=== PATIENT | male | born 1980 | race African-American/Black ===

== ENCOUNTER 2017-06-03 21:27 | Emergency (ER) | payer SELFPAY ==
[2017-06-03 22:21] VITALS: BP 133/71
[2017-06-03] MEDS ORDERED: KETOROLAC TROMETHAMINE INJ/PF 30 MG/1 ML SDV IM ONE (23:18)
[2017-06-03] MEDS ORDERED: METAXALONE 800 MG TABLET PO ONE (23:18)
--- NOTE | 2017-06-03 23:23 | ER Document Report ---
ED General - General Chief Complaint: Low Back Pain Stated Complaint: LOWER BACK PAIN Time Seen by Provider: 06/03/17 23:05 Notes: Patient is a 36-year-old male who presents with complaint of a low back pain. He says he has had low back pain in the past but not like this. Patient says she was helping move heavy stuff on and felt a pain into his lower back around his lumbosacral junction. He has pain that radiates on the back of his right leg. This is a first-time is ever had pain radiate down the back of his right leg. No numbness or weakness into the foot. No other injuries. No recent fevers or infections. No loss of bowel control. No urinary retention. No other complaints at this time. TRAVEL OUTSIDE OF THE [place] IN LAST 30 DAYS: No - Related Data Allergies/Adverse Reactions: No Known Allergies Allergy (Verified 10/06/14 09:38) Past Medical History - Social History Smoking Status: Unknown if Ever Smoked Frequency of alcohol use: None Drug Abuse: None Family History: Reviewed & Not Pertinent, Hypertension Pulmonary Medical History: Reports: Hx Asthma - exercise induced Renal/ Medical History: Denies: Hx Peritoneal Dialysis Psychiatric Medical History: Denies: Hx Depression - Immunizations Immunizations up to date: Yes Hx Diphtheria, Pertussis, Tetanus Vaccination: Yes Review of Systems - Review of Systems Notes: My Normal Review Basic REVIEW OF SYSTEMS: CONSTITUTIONAL : Denies fever, chills, or sweats. Denies recent illness. RESPIRATORY: Denies cough, cold, or chest congestion. Denies shortness of breath, difficulty breathing, or wheezing. MUSCULOSKELETAL: Back pain SKIN: Denies rash or skin lesions. NEUROLOGICAL: Denies weakness or paralysis or loss of use of either side. Denies problems with gait or speech. Denies sensory or motor loss. ALL OTHER SYSTEMS REVIEWED AND NEGATIVE. Physical Exam - Vital signs Vitals: Temp Pulse Resp BP Pulse Ox 98.3 F 67 20 133/71 H 99 06/03/17 22:20 06/03/17 22:20 06/03/17 22:20 06/03/17 22:20 06/03/17 22:20 - Notes Notes: General Appearance: Well nourished, alert, cooperative, no acute distress, moderate obvious discomfort. Vitals: reviewed, See vital signs table. Eyes: PERRL, EOMI, Conjuctiva clear Back: Pinpoint pain to palpation of the lumbosacral junction. No paraspinal tenderness palpation. No pain to palpation over the piriformis. Extremities: strength 5/5 in all extremities, good pulses in all extremities, no swelling or tenderness in the extremities, no edema. Patient is able to stand and walk without too much difficulty. He has no foot drop. He has good strength with plantar dorsiflexion against resistance. Good distal sensation. Normal patellar reflex. Skin: warm, dry, appropriate color, no rash Neuro: speech clear, oriented x 3, normal affect, responds appropriately to questions. Course - Re-evaluation Re-evalutation: 06/04/17 06:37 Patient will be discharged home with a prescription for Skelaxin. He was given a dose of Toradol here. He will take Motrin at home. I encouraged him to follow-up with for reevaluation if his pain is not improving after 5-7 days. He is encouraged to not lift anything heavy but does still get up and walking around. Patient encouraged to return to ER immediately if he has any loss of bowel control, any urinary retension, leg weakness or numbness, or if he feels that his symptoms are worsening. Patient agrees with plan and will be discharged home. Dictation of this chart was performed using voice recognition software; therefore, there may be some unintended grammatical errors. - Vital Signs Vital signs: Temp Pulse Resp BP Pulse Ox 98.3 F 67 20 133/71 H 99 06/03/17 22:20 06/03/17 22:20 06/03/17 22:20 06/03/17 22:20 06/03/17 22:20 Discharge - Discharge Clinical Impression: Back pain Qualifiers: Back pain location: low back pain Chronicity: acute Back pain laterality: midline Sciatica presence: with sciatica Sciatica laterality: sciatica of right side Qualified Code(s): M54.41 - Lumbago with sciatica, right side Condition: Good Disposition: HOME, SELF-CARE Additional Instructions: LOW BACK PAIN: Three out of every four people will have an episode of disabling back pain during their lifetime. Most commonly the pain is due to straining of the muscles and ligaments in the low back. Usual treatment includes: (1) Rest on a firm surface. Avoid lying on your stomach. (2) Ice pack the painful area. After a few days, gentle heat may be used intermittently to relax the area, or ice packs can be continued. (3) Medication may be needed -- muscle relaxers and antiinflammatory medicines are commonly used. (4) As the back improves, exercises are prescribed to strengthen the back and abdominal muscles. Your doctor will advise you on the proper care for your back at each stage in your recovery. You may be better in a few days -- or healing may take several weeks. If new symptoms of a "herniated disc" (radiation of pain, numbness, or tingling down the back of the leg or weakness in the leg) occur, you should be re-examined. Further testing may be necessary. PAIN MEDICATION INJECTION: You have received an injection of a pain medication. You should experience significant pain relief within 45 minutes. If this injection was a narcotic -- it will impair your judgement, slow your reaction time and make you sleepy (as well as relieve your pain). Narcotics also can cause nausea. You should not drive, work with machinery, or perform any task requiring mental alertness until all effects of the medication are gone -- six to eight hours. Do not take any alcohol, or sedatives, and do not take any other medication without checking with your physician. MUSCLE RELAXERS: Muscle relaxing medications are usually prescribed for acute muscle spasm or injury to the neck and back. They are often combined with antiinflammatory pain medication for increased relief. You may stop the muscle relaxer when the pain and stiffness have improved. Start the medication again if spasms recur. Muscle relaxers may cause drowsiness, especially with the first dose. Do not operate machinery or drive while under the effects of the medication. Most muscle relaxers last up to 24 hours. Do not combine the medication with alcohol. ICE PACKS: Apply ice packs frequently against the painful area. Many different schedules are recommended, such as "20 minutes on, 20 minutes off" or "one hour ice, two hours rest." If you need to work, you may need to go longer between ice treatments. You should plan to have the area ice packed AT LEAST one fourth of the time. The ice should be applied over the wrap, tape, or splint, or over a layer of cloth -- not directly against the skin. Some ice bags have a built-in cloth and can be put directly on the skin. WARM PACKS: After approximately two days, apply gentle heat (such as a heating pad or hot water bottle) for about 20 to 30 minutes about every two hours -- at least four times daily. Warmth and elevation will help you make a more rapid recovery , and will ease the pain considerably. Do not use HOT heat, and never apply heat for longer than 30 minutes. The continuous heat can invisibly damage skin and muscles -- even when no burn is seen on the surface. Damaged muscles can make you MORE sore. FOLLOW-UP CARE: If you have been referred to a physician for follow-up care, call the physician s office for an appointment as you were instructed or within the next two days. If you experience worsening or a significant change in your symptoms, notify the physician immediately or return to the Emergency Department at any time for re-evaluation. Please return to the ER immediately if you develop worsening pain, leg weakness or numbness, worsening of your pain, loss of bowel control, inability to urinate , or if you feel unwell. Please follow up with your doctor in 5 days for reevaluation. If you continue to have pain you may need to have a MRI performed. Prescriptions: Ibuprofen [Motrin 800 mg Tablet] 800 mg PO Q8H PRN #30 tab PRN Reason: Metaxalone [Skelaxin 800 mg Tablet] 800 mg PO ASDIR PRN #20 tablet PRN Reason: Forms: Return to Work
[2017-06-04] MEDS ORDERED: KETOROLAC TROMETHAMINE INJ/PF 30 MG/1 ML SDV ONE (00:30)
== END 2017-06-04 00:40 | disposition home or self-care (01) ==
LOC: ER 21:27
DX: M54.41 Lumbago with sciatica, right side (principal); X50.0XXA Overexertion from strenuous movement or load, initial encounter; Y93.89 Activity, other specified; J45.909 Unspecified asthma, uncomplicated
CPT/HCPCS: 99283; 96372; J1885; J3490

== ENCOUNTER 2018-03-02 18:58 | Emergency (ER) | payer SELFPAY ==
--- NOTE | 2018-03-02 20:05 | ER Document Report ---
ED General - General Chief Complaint: Difficulty Swallowing Stated Complaint: TROUBLE SWALLOWING, DRY MOUTH Time Seen by Provider: 03/02/18 20:04 TRAVEL OUTSIDE OF THE [place] IN LAST 30 DAYS: No - HPI Notes: Patient is an otherwise healthy 37-year-old black male presents to the emergency department with report that he has noticed a dry mouth intermittently for the last 2 weeks. The patient states he has been working outside in the heat and has not been drinking enough fluids. The patient currently states he feels better after drinking more fluids today. The patient also has a history of anxiety and his questions whether not the anxiety may be causing the dry mouth sensation. The patient denies any chest pain, difficulty breathing, fever, chills, nausea, vomiting, abdominal pain. The patient reports no dry eyes. He denies any weight loss or night sweats or headache. - Related Data Allergies/Adverse Reactions: No Known Allergies Allergy (Verified 03/02/18 18:59) Past Medical History - General Information source: Patient - Social History Smoking Status: Former Smoker Chew tobacco use (# tins/day): No Frequency of alcohol use: Rare Drug Abuse: None Lives with: Family Family History: Reviewed & Not Pertinent, Hypertension Patient has suicidal ideation: No Patient has homicidal ideation: No Pulmonary Medical History: Reports: Hx Asthma - exercise induced Renal/ Medical History: Denies: Hx Peritoneal Dialysis Psychiatric Medical History: Denies: Hx Depression - Immunizations Immunizations up to date: Yes Hx Diphtheria, Pertussis, Tetanus Vaccination: Yes Review of Systems - Review of Systems Notes: REVIEW OF SYSTEMS: CONSTITUTIONAL : Denies fever, chills, or sweats. Denies recent illness. EENT: Denies eye, ear, throat, or mouth pain. Denies nasal or sinus congestion or discharge. Denies throat, tongue, or mouth swelling. The patient reports occasional sensation of dryness when he is trying to swallow with globus sensation, but other times he feels fine. No voice change. CARDIOVASCULAR: Denies chest pain. Denies palpitations or racing or irregular heart beat. Denies ankle edema. RESPIRATORY: Denies cough, cold, or chest congestion. Denies shortness of breath, difficulty breathing, or wheezing. GASTROINTESTINAL: Denies abdominal pain or distention. Denies nausea, vomiting , or diarrhea. Denies blood in vomitus, stools, or per rectum. Denies black, tarry stools. Denies constipation. GENITOURINARY: Denies difficulty urinating, painful urination, burning, frequency, blood in urine, or discharge. MUSCULOSKELETAL: Denies back or neck pain or stiffness. Denies joint pain or swelling. SKIN: Denies rash, lesions or sores. HEMATOLOGIC : Denies easy bruising or bleeding. LYMPHATIC: Denies swollen, enlarged glands. NEUROLOGICAL: Denies confusion or altered mental status. Denies passing out or loss of consciousness. Denies dizziness or lightheadedness. Denies headache. Denies weakness or paralysis or loss of use of either side. Denies problems with gait or speech. Denies sensory loss, numbness, or tingling. Denies seizures. PSYCHIATRIC: Denies anxiety or stress. Denies depression, suicidal ideation, or homicidal ideation. ALL OTHER SYSTEMS REVIEWED AND NEGATIVE. Dictation was performed using [employer] voice recognition software Physical Exam - Vital signs Vitals: Temp Pulse Resp BP Pulse Ox 98.5 F 69 17 134/78 H 99 03/02/18 19:03 03/02/18 19:03 03/02/18 19:03 03/02/18 19:03 03/02/18 19:03 - Notes Notes: PHYSICAL EXAMINATION: GENERAL: Well-appearing, well-nourished and in no acute distress. HEAD: Atraumatic, normocephalic. EYES: Pupils equal round and reactive to light, extraocular movements intact, sclera anicteric, conjunctiva are normal. ENT: Nares patent, oropharynx clear without exudates. Moist mucous membranes. NECK: Normal range of motion, supple without lymphadenopathy LUNGS: Breath sounds clear to auscultation bilaterally and equal. No wheezes rales or rhonchi. HEART: Regular rate and rhythm without murmurs ABDOMEN: Soft, nontender, nondistended abdomen. No guarding, no rebound. No masses appreciated. Musculoskeletal: Normal range of motion, no pitting or edema. No cyanosis. NEUROLOGICAL: Cranial nerves grossly intact. Normal speech, normal gait. Normal sensory, motor exams PSYCH: Normal mood, normal affect. SKIN: Warm, Dry, normal turgor, no rashes or lesions noted. Course - Re-evaluation Re-evalutation: 03/02/18 21:53 No evidence for diabetes or severe dehydration noted. No evidence for UTI or liver abnormalities or systemic infection. One questions anxiety is a possibility. There is no clinical suggestion for Sjogren's syndrome or Behcet' s or other autoimmune condition given the brief duration and episodic report. - Vital Signs Vital signs: Temp Pulse Resp BP Pulse Ox 98.5 F 69 17 134/78 H 99 03/02/18 19:03 03/02/18 19:03 03/02/18 19:03 03/02/18 19:03 03/02/18 19:03 Discharge - Discharge Clinical Impression: Dehydration Condition: Stable Disposition: HOME, SELF-CARE Instructions: Dehydration ([facility]), Family Physicians / Practices Additional Instructions: Drink plenty of fluids.
[2018-03-02 21:02] LABS: APPEARANCE,URINE CLEAR; BILIRUBIN,URINE NEGATIVE (NEGATIVE); COLOR,URINE YELLOW; GLUCOSE, URINE NEGATIVE (NEGATIVE); KETONES,URINE NEGATIVE (NEGATIVE); LEUKOCYTE ESTERASE,URINE NEGATIVE (NEGATIVE); NITRITE,URINE NEGATIVE (NEGATIVE); PROTEIN,URINE NEGATIVE (NEGATIVE); URINE SPECIFIC GRAVITY 1.015; UROBILINOGEN,URINE NEGATIVE mg/dL (<2.0)
[2018-03-02 22:11] VITALS: BP 138/92
== END 2018-03-02 22:11 | disposition home or self-care (01) ==
LOC: ER 18:58
DX: E86.0 Dehydration (principal); J45.909 Unspecified asthma, uncomplicated; Z87.891 Personal history of nicotine dependence
CPT/HCPCS: 81001; 82962; 99284

== ENCOUNTER 2018-10-09 15:49 | Emergency (ER) | payer SELFPAY ==
[2018-10-09] MEDS ORDERED: IBUPROFEN 800 MG TABLET PO ONE (16:59)
--- NOTE | 2018-10-09 17:01 | ER Document Report ---
ED Neck/Back Problem - General Chief Complaint: Low Back Pain Stated Complaint: LOWER BACK PAIN Time Seen by Provider: 10/09/18 16:32 Mode of Arrival: Ambulatory Information source: Patient Notes: 38-year-old male presented to ED for complaint of low back pain since Sunday. He states he was doing a lot of bending over given his 3-month-old baby of shower then bending over to try him when he developed pain in the lower back. He states his pain has continued. He states his gave him some ibuprofen which helped his pain but that it came right back soon after. He states his told him that he needed to do back exercises and walk but he laid around because of the pain. Patient is alert and oriented respirations regular and unlabored speaking in full sentences. TRAVEL OUTSIDE OF THE [place] IN LAST 30 DAYS: No - HPI Patient complains to provider of: Pain, Lower back Onset: Other - Former Where: Other - In a bed and breakfast he was stating that for the holidays Onset: Gradual Timing: Still present Quality of pain: Achy, Cramping Severity: Moderate Pain Level: 3 Context: Bending, Lifting, Turning Recent injury: Possibly Associated symptoms: Lower back pain - Related Data Allergies/Adverse Reactions: No Known Allergies Allergy (Verified 10/09/18 15:51) Past Medical History - General Information source: Patient - Social History Smoking Status: Former Smoker Cigarette use (# per day): No Chew tobacco use (# tins/day): No Smoking Education Provided: No Frequency of alcohol use: None Drug Abuse: None Occupation: patrol driver Lives with: Family Family History: Reviewed & Not Pertinent, Hypertension Patient has suicidal ideation: No Patient has homicidal ideation: No - Past Medical History Cardiac Medical History: Reports: None Pulmonary Medical History: Reports: Hx Asthma - exercise induced EENT Medical History: Reports: None Neurological Medical History: Reports: None Endocrine Medical History: Reports: None Renal/ Medical History: Reports: None Malignancy Medical History: Reports None GI Medical History: Reports: None Musculoskeletal Medical History: Reports Hx Musculoskeletal Trauma Skin Medical History: Reports None Psychiatric Medical History: Reports: None Traumatic Medical History: Reports: None Infectious Medical History: Reports: None Surgical Hx: Negative Past Surgical History: Reports: None - Immunizations Immunizations up to date: Yes Hx Diphtheria, Pertussis, Tetanus Vaccination: Yes Review of Systems - Review of Systems Constitutional: No symptoms reported EENT: No symptoms reported Cardiovascular: No symptoms reported Respiratory: No symptoms reported Gastrointestinal: No symptoms reported Genitourinary: No symptoms reported Male Genitourinary: No symptoms reported Musculoskeletal: Back pain, Muscle pain, Muscle stiffness, Other - Patient denies any cauda equina, he denies any loss of control of bowel or bladder, saddle anesthesia, loss of control of lower extremities or loss of sensation to the lower extremities. Skin: No symptoms reported Hematologic/Lymphatic: No symptoms reported Neurological/Psychological: No symptoms reported -: Yes All other systems reviewed and negative Physical Exam - Vital signs Vitals: Temp Pulse Resp BP Pulse Ox 99.0 F 73 15 133/90 H 97 10/09/18 16:04 10/09/18 16:04 10/09/18 16:04 10/09/18 16:04 10/09/18 16:04 Interpretation: Normal - General General appearance: Appears well, Alert - HEENT Head: Normocephalic, Atraumatic Eyes: Normal Pupils: PERRL - Respiratory Respiratory status: No respiratory distress Chest status: Nontender Breath sounds: Normal Chest palpation: Normal - Cardiovascular Rhythm: Regular Heart sounds: Normal auscultation Murmur: No - Abdominal Inspection: Normal Distension: No distension Bowel sounds: Normal Tenderness: Nontender Organomegaly: No organomegaly - Back Back: Normal, Tender. No: Deformity/step-off, CVA tenderness, Vertebra tenderness, Scars, Scoliosis, Wounds Notes: No signs or symptoms of cauda equina - Extremities General upper extremity: Normal inspection, Nontender, Normal color, Normal ROM, Normal temperature General lower extremity: Normal inspection, Nontender, Normal color, Normal ROM, Normal temperature, Normal weight bearing. No: Jeanette's sign - Neurological Neuro grossly intact: Yes Cognition: Normal Orientation: AAOx4 Matthew Coma Scale Eye Opening: Spontaneous Matthew Coma Scale Verbal: Oriented [place] Coma Scale Motor: Obeys Commands Matthew Coma Scale Total: 15 Speech: Normal Motor strength normal: LUE, RUE, LLE, RLE Sensory: Normal - Psychological Associated symptoms: Normal affect, Normal mood - Skin Skin Temperature: Warm Skin Moisture: Dry Skin Color: Normal Course - Re-evaluation Re-evalutation: 10/09/18 21:56 Ibuprofen and Flexeril were given to the patient and patient had x-rays of the lumbar spine. No acute changes on the x-rays. Patient was discharged home with prescription for Flexeril and instructed on back exercises ice packs warm packs and need to move not to lay still. Patient also given instructions on ibuprofen. Patient to follow-up with his primary doctor for any increase or continued pain. Patient verbalized understanding and agreement with treatment plan. - Vital Signs Vital signs: Temp Pulse Resp BP Pulse Ox 98.4 F 63 18 135/83 H 99 10/09/18 18:43 10/09/18 18:43 10/09/18 18:43 10/09/18 18:43 10/09/18 18:43 - Diagnostic Test Radiology reviewed: Image reviewed, Reports reviewed Discharge - Discharge Clinical Impression: Low back strain Qualifiers: Encounter type: initial encounter Qualified Code(s): S39.012A - Strain of muscle, fascia and tendon of lower back, initial encounter Condition: Stable Disposition: HOME, SELF-CARE Instructions: Family Physicians / Practices Additional Instructions: LOW BACK PAIN: Three out of every four people will have an episode of disabling back pain during their lifetime. Most commonly the pain is due to straining of the muscles and ligaments in the low back. Usual treatment includes: (1) Rest on a firm surface. Avoid lying on your stomach. (2) Ice pack the painful area. After a few days, gentle heat may be used intermittently to relax the area, or ice packs can be continued. (3) Medication may be needed -- muscle relaxers and antiinflammatory medicines are commonly used. (4) As the back improves, exercises are prescribed to strengthen the back and abdominal muscles. Your doctor will advise you on the proper care for your back at each stage in your recovery. You may be better in a few days -- or healing may take several weeks. If new symptoms of a "herniated disc" (radiation of pain, numbness, or tingling down the back of the leg or weakness in the leg) occur, you should be re-examined. Further testing may be necessary. MUSCLE RELAXERS: Muscle relaxing medications are usually prescribed for acute muscle spasm or injury to the neck and back. They are often combined with antiinflammatory pain medication for increased relief. You may stop the muscle relaxer when the pain and stiffness have improved. Start the medication again if spasms recur. Muscle relaxers may cause drowsiness, especially with the first dose. Do not operate machinery or drive while under the effects of the medication. Most muscle relaxers last up to 24 hours. Do not combine the medication with alcohol. ICE PACKS: Apply ice packs frequently against the painful area. Many different schedules are recommended, such as "20 minutes on, 20 minutes off" or "one hour ice, two hours rest." If you need to work, you may need to go longer between ice treatments. You should plan to have the area ice packed AT LEAST one fourth of the time. The ice should be applied over the wrap, tape, or splint, or over a layer of cloth -- not directly against the skin. Some ice bags have a built-in cloth and can be put directly on the skin. WARM PACKS: After approximately two days, apply gentle heat (such as a heating pad or hot water bottle) for about 20 to 30 minutes about every two hours -- at least four times daily. Warmth and elevation will help you make a more rapid recovery, and will ease the pain considerably. Do not use HOT heat, and never apply heat for longer than 30 minutes. The continuous heat can invisibly damage skin and muscles -- even when no burn is seen on the surface. Damaged muscles can make you MORE sore. Ibuprofen Ibuprofen is an excellent, safe drug for pain control. In addition, it has potent antiinflammatory effects which are beneficial, especially in the treatment of injuries, arthritis, or tendonitis. It's best to take ibuprofen with food. Persons with ulcer disease or allergy to aspirin should notify their physician of this before taking ibuprofen. Take the medication exactly as prescribed. Don't take additional doses unless instructed to do so by your doctor. If you develop wheezing, shortness of breath, hives, faintness, stomach pain, vomiting, or dark black stools, return for re-evaluation at once. Stretching Exercises for the Back The physician has recommended that you begin stretching exercises for your back. These are often used even while the back is painful. However, you should notify the physician if the activities seem to increase your pain. PELVIC TILT: Lie flat on your back with knees bent. Tighten your stomach and buttock muscles so it flattens your lower back against the floor. Hold 10 seconds. Repeat 10 times, twice daily. KNEE RAISE: Lying on the back with knees bent, raise one knee to your chest, then the other. Hold both knees against the chest 10 seconds, then lower one knee at a time. Repeat 10 times, twice daily. PARTIAL TRUNK RAISE: Lie face down, arms at your sides. Keeping your waist on the floor, use your arms raise your chest up. Support yourself on your elbows for 30 seconds. Repeat twice daily, increasing the time to two minutes as you recover. FOLLOW-UP CARE: If you have been referred to a physician for follow-up care, call the physicians office for an appointment as you were instructed or within the next two days. If you experience worsening or a significant change in your symptoms, notify the physician immediately or return to the Emergency Department at any time for re-evaluation. Prescriptions: Cyclobenzaprine HCl [Flexeril 10 mg Tablet] 10 mg PO TIDP PRN #15 tab PRN Reason: Forms: Elevated Blood Pressure, Return to Work
[2018-10-09] MEDS ORDERED: CYCLOBENZAPRINE HCL 10 MG TABLET PO ONE (17:02)
--- NOTE | 2018-10-09 18:23 | RADIOLOGY REPORT (SQ) ---
EXAM DESCRIPTION: L SPINE WHOLE COMPLETED DATE/TIME: 10/09/2018 5:28 pm REASON FOR STUDY: pain and injury COMPARISON: 08/15/2017 NUMBER OF VIEWS: Five views including obliques. TECHNIQUE: AP, lateral, oblique, and sacral radiographic images acquired of the lumbar spine. LIMITATIONS: None. FINDINGS: MINERALIZATION: Normal. SEGMENTATION: 6 non rib-bearing lumbar type vertebral bodies. ALIGNMENT: Normal. VERTEBRAE: Maintained height. No fracture or worrisome bone lesion. DISCS: Preserved height. No significant osteophytes or end plate irregularity. POSTERIOR ELEMENTS: Pedicles and facets are intact. No pars defect or posterior arch defects. HARDWARE: None in the spine. PARASPINAL SOFT TISSUES: Normal. PELVIS: Intact as visualized. No fractures or worrisome bone lesions. SI joints intact. OTHER: No other significant finding. IMPRESSION: No acute fracture of the lumbar spine. TECHNICAL DOCUMENTATION: JOB ID: [id number] [employer]- All Rights Reserved Reading location - IP/workstation name: [email or web address]
[2018-10-09 18:53] VITALS: BP 135/83
== END 2018-10-09 19:11 | disposition home or self-care (01) ==
LOC: ER 15:49
DX: S39.012A Strain of muscle, fascia and tendon of lower back, initial encounter (principal); X50.1XXA Overexertion from prolonged static or awkward postures, initial encounter; Z87.891 Personal history of nicotine dependence; J45.909 Unspecified asthma, uncomplicated
CPT/HCPCS: 72110; 99283

== ENCOUNTER 2019-05-29 20:30 | Emergency (ER) | payer SELFPAY ==
--- NOTE | 2019-05-30 00:19 | ER Document Report ---
ED General - General Chief Complaint: Mouth Problem Stated Complaint: DRY MOUTH Time Seen by Provider: 05/29/19 23:45 Notes: 38-year-old male presents the emergency department with chief complaint of dry mouth. He said is been intermittent for the past 3 weeks. He has been seen for this before but it was transient in nature. Patient states he works outside and he drinks less than 1 L of water a day so he thinks he might be dehydrated. Th ere is no evidence of aphthous ulcers or any cutaneous lesions in his mouth. Patient denies a history of those. Patient states periodically its bothersome because he has difficulty swallowing like he has "cotton mouth". He went to the urgent care and the provider said that they thought that he had inflammation of his "taste buds" and placed him on steroids for which he took 2 doses but could not tolerate it and stopped. Patient denies any recent illness, denies any acute shortness of breath, denies any dysphagia, denies any chest pain, denies rapid heart rate, denies any urinary symptoms. No other complaints TRAVEL OUTSIDE OF THE [place] IN LAST 30 DAYS: No - Related Data Allergies/Adverse Reactions: No Known Allergies Allergy (Verified 10/09/18 15:51) Past Medical History - Social History Smoking Status: Never Smoker Chew tobacco use (# tins/day): No Frequency of alcohol use: None Drug Abuse: None Family History: Reviewed & Not Pertinent, Hypertension Patient has suicidal ideation: No Patient has homicidal ideation: No Pulmonary Medical History: Reports: Hx Asthma - exercise induced Renal/ Medical History: Denies: Hx Peritoneal Dialysis Musculoskeletal Medical History: Reports Hx Musculoskeletal Trauma Psychiatric Medical History: Denies: Hx Depression - Immunizations Immunizations up to date: Yes Hx Diphtheria, Pertussis, Tetanus Vaccination: Yes Review of Systems - Review of Systems Constitutional: See HPI EENT: See HPI Cardiovascular: See HPI Respiratory: See HPI Gastrointestinal: See HPI Genitourinary: See HPI Male Genitourinary: No symptoms reported Musculoskeletal: No symptoms reported Skin: See HPI Hematologic/Lymphatic: No symptoms reported Neurological/Psychological: No symptoms reported Physical Exam - Vital signs Vitals: Temp Pulse Resp BP Pulse Ox 98.5 F 77 18 143/95 H 96 05/29/19 20:33 05/29/19 20:33 05/29/19 20:33 05/29/19 20:33 05/29/19 20:33 - Notes Notes: PHYSICAL EXAMINATION: Reviewed vital signs and charting by RN GENERAL: Alert, interacts well. No acute distress. HEAD: Normocephalic, atraumatic. EYES: Pupils equal and round. Extraocular movements intact. ENT: Oral mucosa moist, tongue midline. Papillated in the posterior aspect of his tongue are slightly inflamed but there is no erythema or any lesions no aphthous ulcers or any cutaneous lesions seen in the mouth. NECK: Full range of motion. Trachea midline. LUNGS: Clear to auscultation bilaterally, no wheezes, rales, or rhonchi. No respiratory distress. HEART: Regular rate and rhythm. No murmur ABDOMEN: soft, non-tender. No distention. Bowel sounds present EXTREMITIES: Moves all 4 extremities spontaneously. No edema, No cyanosis. PSYCH: Normal affect, normal mood. SKIN: Warm, dry, normal turgor. No rashes or lesions noted. Course - Re-evaluation Re-evalutation: 05/30/19 00:18 Patient is well-appearing and in no acute distress. This is been an intermittent ongoing thing and patient was seen here previously for the same problem. Patient said he checked his blood sugar at home and it was around 90 so I have low suspicion that etiology is diabetes. No concerns for autoimmune disorder like Sjogren's syndrome or Bechet disease. I suspect patient might be dehydrated as he does not drink hardly any water works outside every day. Plan is to give him IV fluids and check a quick urinalysis. 05/30/19 01:12 Urine was not concentrated and there is no ketones in the urine to indicate dehydration. I discussed at length possibilities with patient but again I do not suspect any autoimmune issue, patient is not taking any anticholinergics, there is no clear cause for why is having a dry mouth other than low fluid intake and working outside. He is receiving IV fluids and tolerating them. He does have a dentist appointment on Sunday and he is going to raise the issue with the dentist. At this time he is stable for discharge. - Vital Signs Vital signs: Temp Pulse Resp BP Pulse Ox 98.5 F 77 18 143/95 H 96 05/29/19 20:33 05/29/19 20:33 05/29/19 20:33 05/29/19 20:33 05/29/19 20:33 Discharge - Discharge Clinical Impression: Dry mouth Condition: Good Disposition: HOME, SELF-CARE Additional Instructions: You were seen in the emergency department this evening for dry mouth. Your urinalysis was fairly unremarkable and we gave you 2 L of IV fluids to help rehydrate you. I suspect that it is probably related to low water intake since he works outside. I do not think you have any autoimmune issue at this time. Please follow-up with your primary doctor in the near future to follow-up if the problem persists. If you develop the inability to swallow, have severe pain with swallowing, your throat starts closing up, you have intractable nausea or vomiting, or you have any other concerning symptoms please return to the emergency department. Forms: Return to Work
[2019-05-30] MEDS: NORMAL SALINE 1000 ML 1,000 ML IV PRN ×2 (00:33→00:34)
[2019-05-30 00:40] LABS: APPEARANCE,URINE CLEAR; BILIRUBIN,URINE NEGATIVE (NEGATIVE); COLOR,URINE STRAW; GLUCOSE, URINE NEGATIVE (NEGATIVE); KETONES,URINE NEGATIVE (NEGATIVE); LEUKOCYTE ESTERASE,URINE NEGATIVE (NEGATIVE); NITRITE,URINE NEGATIVE (NEGATIVE); PROTEIN,URINE NEGATIVE (NEGATIVE); URINE SPECIFIC GRAVITY 1.014; UROBILINOGEN,URINE NEGATIVE mg/dL (<2.0)
[2019-05-30 01:53] VITALS: BP 119/83
== END 2019-05-30 01:51 | disposition home or self-care (01) ==
LOC: ER 20:30
DX: R68.2 Dry mouth, unspecified (principal); K14.0 Glossitis; J45.909 Unspecified asthma, uncomplicated
CPT/HCPCS: 99284; 96360; 81001; J7030

== ENCOUNTER 2019-07-11 19:59 | Emergency (ER) | payer SELFPAY ==
[2019-07-11 20:16] VITALS: BP 142/81
--- NOTE | 2019-07-11 21:44 | ER Document Report ---
HPI - HPI Patient complains to provider of: Cough and congestion Time Seen by Provider: 07/11/19 21:20 Pain Level: 2 Context: Patient is a 38-year-old male presents to the emergency department for generalized cough and congestion for the last 7 days. Patient is denying any fevers. He is denying any shortness of breath, chest pain, abdominal pain, nausea, vomiting, diarrhea, dysuria. States he did use Afrin once yesterday. States he has not used any other [id number] medications. Patient denies any medical problems, denies taking daily medications, denies any allergies. - REPRODUCTIVE Reproductive: DENIES: : Past Medical History - General Information source: Patient - Social History Smoking Status: Never Smoker Family History: Reviewed & Not Pertinent, Hypertension Patient has suicidal ideation: No Patient has homicidal ideation: No Pulmonary Medical History: Reports: Hx Asthma - exercise induced Renal/ Medical History: Denies: Hx Peritoneal Dialysis Musculoskeletal Medical History: Reports Hx Musculoskeletal Trauma Psychiatric Medical History: Denies: Hx Depression - Immunizations Immunizations up to date: Yes Hx Diphtheria, Pertussis, Tetanus Vaccination: Yes Vertical Provider Document - CONSTITUTIONAL Agree With Documented VS: Yes Notes: GENERAL: Alert, interacts well. No acute distress. HEAD: Normocephalic, atraumatic. No frontal or maxillary sinus tenderness noted EYES: Pupils equal, round, and reactive to light. Extraocular movements intact. ENT: Oral mucosa moist, tongue midline. Nares patent, swollen turbinates noted bilaterally, TM's intact, nonerythematous, nonbulging bilaterally. Pharynx minorly erythematous, no palatal petechiae or exudate noted. NECK: Full range of motion. Supple. Trachea midline. No lymphadenopathy appreciated LUNGS: Clear to auscultation bilaterally, no wheezes, rales, or rhonchi. No respiratory distress. HEART: Regular rate and rhythm. No murmur ABDOMEN: Soft, non-tender. Non-distended. Bowel sounds present in all 4 quadrants. EXTREMITIES: Moves all 4 extremities spontaneously. No edema, normal radial and dorsalis pedis pulses bilaterally. No cyanosis. BACK: no cervical, thoracic, lumbar midline tenderness. No saddle anesthesia, normal distal neurovascular exam. NEUROLOGICAL: Alert and oriented x3. Normal speech. cranial nerves II through XII grossly intact PSYCH: Normal affect, normal mood. SKIN: Warm, dry, normal turgor. No rashes or lesions noted. - INFECTION CONTROL TRAVEL OUTSIDE OF THE [place] IN LAST 30 DAYS: No Course - Re-evaluation Re-evalutation: 07/11/19 21:42 Discussed with patient at length upper respiratory infection diagnosis. Also discussed using [id number] medications for symptomatic relief. At this time will discharge with return precautions and follow-up recommendations. Verbal discharge instructions given a the bedside and op portunity for questions given. Medication warnings reviewed. Patient is in agreement with this plan and has verbalized understanding of return precautions and the need for primary care follow-up in the next 24-72 hours. This medical record was dictated with voice recognizing software. There may be grammatical, syntax errors that are unintended. - Vital Signs Vital signs: Temp Pulse Resp BP Pulse Ox 98.1 F 63 22 H 142/81 H 98 07/11/19 20:15 07/11/19 20:15 07/11/19 20:15 07/11/19 20:15 07/11/19 20:15 Discharge - Discharge Clinical Impression: Upper respiratory infection Qualifiers: URI type: unspecified viral URI Qualified Code(s): J06.9 - Acute upper respiratory infection, unspecified Condition: Stable Disposition: HOME, SELF-CARE Instructions: Upper Respiratory Illness ([facility]), Viral Syndrome ([facility]) Additional Instructions: As we discussed you have been seen and treated in the emergency department for an upper respiratory infection. These are typically caused by viruses and do not respond to antibiotics. Please make sure you are using [id number] cold medications. You can also add an allergy medication to this regimen. Please stay well-hydrated. Please follow-up with your primary care provider in the next 24 to 48 hours. Return to the emergency room for any concerns. Prescriptions: Fluticasone Propionate [Flonase Nasal [place] 50 Mcg/[place] 16 gm] 1 spray NASL Q12 #1 inhaler Referrals: [facility] [Provider Group] - Follow up as needed [facility] [Provider Group] - Follow up as needed
== END 2019-07-11 21:45 | disposition home or self-care (01) ==
LOC: ER 19:59
DX: J06.9 Acute upper respiratory infection, unspecified (principal); R68.89 Other general symptoms and signs
CPT/HCPCS: 99283

== ENCOUNTER 2019-07-18 19:20 | Emergency (ER) | payer SELFPAY ==
[2019-07-18 19:50] VITALS: BP 134/88
[2019-07-18] MEDS ORDERED: DEXAMETHASONE SOD PHOS INJ 10 MG/1 ML VIAL IM ONE (20:04)
[2019-07-18] MEDS ORDERED: PSEUDOEPHEDRINE HCL 30 MG TABLET PO ONE (20:05)
[2019-07-18] MEDS ORDERED: IBUPROFEN 600 MG TABLET PO ONE (20:05)
--- NOTE | 2019-07-18 20:08 | ER Document Report ---
ED ENT - General Chief Complaint: Breathing Difficulty Stated Complaint: SHORTNESS OF BREATHE Time Seen by Provider: 07/18/19 20:00 Mode of Arrival: Ambulatory Information source: Patient TRAVEL OUTSIDE OF THE [place] IN LAST 30 DAYS: No - HPI Patient complains to provider of: Nose problem Onset: Last week Onset/Duration: Persistent Severity: Moderate Pain Level: 4 Context: Recent Illness Location of pain: Nose, Sinus Associated symptoms: Sinus pain, Sinus drainage Similar symptoms previously: Yes Recently seen / treated by doctor: Yes - Related Data Allergies/Adverse Reactions: No Known Allergies Allergy (Verified 07/11/19 21:16) Past Medical History - General Information source: Patient - Social History Smoking Status: Former Smoker Chew tobacco use (# tins/day): No Frequency of alcohol use: None Drug Abuse: None Occupation: autobody Lives with: Family Family History: Reviewed & Not Pertinent, Hypertension Patient has suicidal ideation: No Patient has homicidal ideation: No - Past Medical History Cardiac Medical History: Reports: None Pulmonary Medical History: Reports: Hx Asthma - exercise induced EENT Medical History: Reports: None Neurological Medical History: Reports: None Endocrine Medical History: Reports: None Renal/ Medical History: Reports: None Malignancy Medical History: Reports None GI Medical History: Reports: None Musculoskeletal Medical History: Reports None Skin Medical History: Reports None Psychiatric Medical History: Reports: None Traumatic Medical History: Reports: None Infectious Medical History: Reports: None Surgical Hx: Negative Past Surgical History: Reports: None - Immunizations Immunizations up to date: Yes Hx Diphtheria, Pertussis, Tetanus Vaccination: Yes Review of Systems - Review of Systems Constitutional: No symptoms reported, Recent illness EENT: Nose congestion, Nose discharge, Sinus pressure, Sinus discharge Cardiovascular: No symptoms reported Respiratory: Cough Gastrointestinal: No symptoms reported Genitourinary: No symptoms reported Male Genitourinary: No symptoms reported Musculoskeletal: No symptoms reported Skin: No symptoms reported Hematologic/Lymphatic: No symptoms reported Neurological/Psychological: No symptoms reported -: Yes All other systems reviewed and negative Physical Exam - Vital signs Vitals: Temp Pulse Resp BP Pulse Ox 97.9 F 62 16 134/88 H 100 07/18/19 19:49 07/18/19 19:49 07/18/19 19:49 07/18/19 19:49 07/18/19 19:49 Interpretation: Normal - General General appearance: Appears well, Alert - HEENT Head: Normocephalic, Atraumatic Eyes: Normal Pupils: PERRL Ears: Normal External canal: Normal Tympanic membrane: Normal Sinus: Frontal, Tenderness. No: Redness, Swelling Nasal: Purulent discharge, Swelling Mouth/Lips: Normal Mucous membranes: Normal Pharynx: Erythema, Post nasal drainage Neck: Normal - Respiratory Respiratory status: No respiratory distress Chest status: Nontender Breath sounds: Normal Chest palpation: Normal - Cardiovascular Rhythm: Regular Heart sounds: Normal auscultation Murmur: No - Abdominal Inspection: Normal Distension: No distension Bowel sounds: Normal Tenderness: Nontender Organomegaly: No organomegaly - Back Back: Normal, Nontender - Extremities General upper extremity: Normal inspection, Nontender, Normal color, Normal ROM, Normal temperature General lower extremity: Normal inspection, Nontender, Normal color, Normal ROM, Normal temperature, Normal weight bearing. No: Jeanette's sign - Neurological Neuro grossly intact: Yes Cognition: Normal Orientation: AAOx4 Matthew Coma Scale Eye Opening: Spontaneous [place] Coma Scale Verbal: Oriented Matthew Coma Scale Motor: Obeys Commands [place] Coma Scale Total: 15 Speech: Normal Motor strength normal: LUE, RUE, LLE, RLE Sensory: Normal - Psychological Associated symptoms: Normal affect, Normal mood - Skin Skin Temperature: Warm Skin Moisture: Dry Skin Color: Normal Course - Re-evaluation Re-evalutation: 07/18/19 22:33 After performing a Medical Screening Examination, I estimate there is LOW risk for ACUTE CORONARY SYNDROME, RESPIRATORY FAILURE, SEPSIS OR MENINGITIS, thus I consider the discharge disposition reasonable. I have reevaluated this patient multiple times and no significant life threatening changes are noted. The patient and I have discussed the diagnosis and risks, and we agree with discharging home with close follow-up. We also discussed returning to the Emergency Department immediately if new or worsening symptoms occur. We have discussed the symptoms which are most concerning (e.g., changing or worsening pain, trouble swallowing or breathing, neck stiffness, fever) that necessitate immediate return. - Vital Signs Vital signs: Temp Pulse Resp BP Pulse Ox 97.9 F 62 16 134/88 H 100 07/18/19 19:49 07/18/19 19:49 07/18/19 19:49 07/18/19 19:49 07/18/19 19:49 Discharge - Discharge Clinical Impression: Sinus pain Upper respiratory infection Qualifiers: URI type: unspecified viral URI Qualified Code(s): J06.9 - Acute upper respiratory infection, unspecified Disposition: HOME, SELF-CARE Instructions: Family Physicians / Practices Additional Instructions: UPPER RESPIRATORY ILLNESS: You have a viral infection of the respiratory passages -- a "cold." This common infection causes nasal congestion, drainage, and often sore throat and cough. It is highly contagious. The disease usually lasts about 10 to 14 days. There is no "cure" for the viral infection -- it must run its course. If there is a complication, such as bacterial infection in the nose, sinuses, middle ear, or bronchial tubes, antibiotics may be required. The antibiotics won't affect the virus. Drink plenty of fluids. A humidifier may help. An expectorant medication or decongestant may make you more comfortable. Use acetaminophen or ibuprofen for fever or aches. See the doctor if fever persists over two days, if there is any significant worsening of your symptoms, or if you simply fail to improve as expected. DECONGESTANT MEDICATION: A decongestant medicine has been suggested. Often this medicine is combined in the same tablet with an antihistamine or expectorant. This type of medicine is helpful in treating a bad cold or sinus condition, as well as in treatment of the nasal congestion of hay fever. It is not of much benefit for lung infections. Decongestant medicines are related to stimulants. They can cause an increase in blood pressure and heart rate. Persons with heart disease and high blood pressure should not take decongestants without discussing this with the physician. If you develop palpitations, chest pain, headache, or tremors, stop the medicine and consult your physician. COUGH-SUPPRESSANT & EXPECTORANT MEDICATION: You are to use a cough medication as needed for relief of symptoms. This medicine is a combination of an expectorant (to make the mucous thinner and more easily "coughed up") and a cough suppressant (to reduce the frequency of c oughing). The cough-suppressant medicine is related to narcotics. You may experience mild nausea and sleepiness. Some patients who are very sensitive to narcotics may have stomach pain from this medicine. Taking the medicine with food reduces these side effects. Do not drive or work with machinery until you know how this medicine affects you. The expectorant should have no side effects. Iodine-containing expectorants (such as organidin) should not be taken by persons with active thyroid disease unless approved by your doctor. Call the doctor if you develop shortness of breath, hives, rash, itching, lightheadedness, or severe nausea and vomiting. STEROID MEDICATION: You have been given an injection of or oral medicine of the cortisone/steroid class. This medication is used to control inflammation or allergy. Caleb t is usually only given for a short period of time, until the acute process subsides. There are usually no side effects from short-term use of cortisone-like medications. Some persons feel an increased sense of well-being and are not sleepy at bedtime. Long-term use of cortisone medications is best avoided, unless required for a severe condition. If your condition does not remit, or relapses after the course of corticosteroid medication, you should consult your physician. USE OF ACETAMINOPHEN (Tylenol): Acetaminophen may be taken for pain relief or fever control. It's much safer than aspirin, offering a wider range of "safe" dosages. It is safe during . Some brand names are Tylenol, Panadol, Datril, Anacin 3, Tempra, and Liquiprin. Acetaminophen can be repeated every four hours. The following are maximum recommended dosages: >89 pounds or adults 650 mg to 900 mg Acetaminophen can be repeated every four hours. Maximum dose not to exceed 4000 mg a day. FOLLOW-UP CARE: If you have been referred to a physician for follow-up care, call the physicians office for an appointment as you were instructed or within the next two days. If you experience worsening or a significant change in your symptoms, notify the physician immediately or return to the Emergency Department at any time for re-evaluation. Forms: Elevated Blood Pressure, Return to Work
== END 2019-07-18 20:20 | disposition home or self-care (01) ==
LOC: ER 19:20
DX: J06.9 Acute upper respiratory infection, unspecified (principal); R51 Headache; R06.02 Shortness of breath; Z87.891 Personal history of nicotine dependence; J45.909 Unspecified asthma, uncomplicated
CPT/HCPCS: 96372; 99284; J1100

== ENCOUNTER 2019-08-14 16:07 | Emergency (ER) | payer SELFPAY ==
--- NOTE | 2019-08-14 16:22 | ER Document Report ---
ED Medical Screen (RME) - General Chief Complaint: Dizziness Stated Complaint: DIZZY, SHAKY/BLOOD PRESSURE ISSUES Time Seen by Provider: 08/14/19 16:19 Mode of Arrival: Ambulatory Information source: Patient Notes: He 39-year-old male presented to ED for dizziness. He states he was put gorilla glue on theof his car and started feeling dizzy and shaky. He states that he went to let somebody test drive the car and he was still feeling shaky. When he got back home from test driving the car he took checked his blood pressure and his blood sugar. Blood pressure was 155/92 he did not get a chance to check his sugar. He states he came to the emergency room because of the elevated blood pressure. He states he does not know if he has high blood sugar but his family does. He states his blood pressure is normally 120s over 80. He states he is also very thirsty. I have greeted and performed a rapid initial assessment of this patient. A comprehensive ED assessment and evaluation of the patient, analysis of test results and completion of medical decision making process will be conducted by an additional ED providers. TRAVEL OUTSIDE OF THE [place] IN LAST 30 DAYS: No - Related Data Allergies/Adverse Reactions: No Known Allergies Allergy (Verified 08/14/19 16:19) Past Medical History Pulmonary Medical History: Reports: Hx Asthma - exercise induced - Immunizations Immunizations up to date: Yes Hx Diphtheria, Pertussis, Tetanus Vaccination: Yes Physical Exam - Vital signs Vitals: Temp Pulse Resp BP Pulse Ox 97.9 F 89 16 153/78 H 100 08/14/19 16:10 08/14/19 16:10 08/14/19 16:10 08/14/19 16:10 08/14/19 16:10 Course - Vital Signs Vital signs: Temp Pulse Resp BP Pulse Ox 97.9 F 89 16 153/78 H 100 08/14/19 16:10 08/14/19 16:10 08/14/19 16:10 08/14/19 16:10 08/14/19 16:10
[2019-08-14 18:11] LABS: ABSOLUTE BASOPHILS # (AUTO) 0.1 10^3/uL (0.0-0.2); ABSOLUTE EOSINOPHILS # (AUTO) 0.1 10^3/uL (0.0-0.6); ABSOLUTE LYMPHOCYTES (AUTO) 1.8 10^3/uL (0.5-4.7); ABSOLUTE MONOCYTES (AUTO) 0.4 10^3/uL (0.1-1.4); ABSOLUTE NEUT (AUTO) 3.2 10^3/uL (1.7-8.2); APPEARANCE,URINE CLEAR; BASOPHILS % (AUTO) 0.9 % (0-2); BILIRUBIN,URINE NEGATIVE (NEGATIVE); COLOR,URINE YELLOW; GLUCOSE, URINE NEGATIVE (NEGATIVE); HEMATOCRIT 42.9 % (37.9-51.0); HEMOGLOBIN 14.3 g/dL (13.5-17.0); KETONES,URINE NEGATIVE (NEGATIVE); LYMPHOCYTES % (AUTO) 31.9 % (13-45); MEAN CORPUSCULAR HEMOGLOBIN 28.7 pg (27.0-33.4); MEAN CORPUSCULAR HGB CONC 33.4 g/dL (32.0-36.0); MEAN CORPUSCULAR VOLUME 86 fl (80-97); MONOCYTES % (AUTO) 7.4 % (3-13); PLATELET COUNT 233 10^3/uL (150-450); PROTEIN,URINE NEGATIVE (NEGATIVE); RED BLOOD COUNT 4.98 10^6/uL (4.35-5.55); RED CELL DISTRIBUTION WIDTH 14.8 % (11.5-14.0); SEGMENTED NEUTROPHILS % (AUTO) 57.8 % (42-78); TOTAL CELLS COUNTED % (AUTO) 100 %; URINE SPECIFIC GRAVITY 1.017; UROBILINOGEN,URINE NEGATIVE mg/dL (<2.0); WHITE BLOOD COUNT 5.6 10^3/uL (4.0-10.5)
[2019-08-14 18:32] LABS: ALBUMIN 4.5 g/dL (3.5-5.0); ALKALINE PHOSPHATASE 45 U/L (38-126); ANION GAP 9 (5-19); ASPARTATE AMINO TRANSFERASE 26 U/L (17-59); BILIRUBIN,DIRECT 0.2 mg/dL (0.0-0.4); BILIRUBIN,TOTAL 0.4 mg/dL (0.2-1.3); BLOOD UREA NITROGEN 11 mg/dL (7-20); CALCIUM 9.3 mg/dL (8.4-10.2); CARBON DIOXIDE 30 mmol/L (22-30); CHLORIDE 103 mmol/L (98-107); GLUCOSE 95 mg/dL (75-110); POTASSIUM 4.3 mmol/L (3.6-5.0)
[2019-08-14 19:00] LABS: VENOUS BLOOD BASE EXCESS 8.3 mmol/L; VENOUS BLOOD HCO3 37.4 mmol/L (20-32); VENOUS BLOOD PH 7.33 (7.30-7.42)
[2019-08-14 19:03] LABS: VENOUS BLOOD PCO2 73.1 mmHg (35-63)
--- NOTE | 2019-08-14 20:24 | RADIOLOGY REPORT (SQ) ---
EXAM DESCRIPTION: XR CHEST 2 VIEWS COMPLETED DATE/TME: 08/14/2019 19:12 CLINICAL HISTORY: 39 years, Male, sob EXAM DESCRIPTION: CLINICAL HISTORY: sob COMPARISON: None. FINDINGS: There is bilateral peribronchial cuffing. No focal consolidation is identified. Heart size is normal no significant pleural effusion. No pneumothorax is seen. IMPRESSION: Findings are most consistent with viral inflammation.
--- NOTE | 2019-08-14 23:12 | ER Document Report ---
ED General - General Chief Complaint: Dizziness Stated Complaint: DIZZY, SHAKY/BLOOD PRESSURE ISSUES Time Seen by Provider: 08/14/19 16:19 Mode of Arrival: Ambulatory Notes: BERRY NOTE: He 39-year-old male presented to ED for dizziness. He states he was put gorilla glue on theof his car and started feeling dizzy and shaky. He states that he went to let somebody test drive the car and he was still feeling shaky. When he got back home from test driving the car he took checked his blood pressure and his blood sugar. Blood pressure was 155/92 he did not get a chance to check his sugar. He states he came to the emergency room because of the elevated blood pressure. He states he does not know if he has high blood sugar but his family does. He states his blood pressure is normally 120s over 80. He states he is also very thirsty. MY HPI: Upon my assessment patient is denying all complaints. Patient voices he no longer feels "shaky". Hes denying CP, SOB, headache, lightheadedness, dizziness, weakness. States he does continue with a generalized cough and congestion but is denying any fevers. He is denying any respiratory distress. Patient voices he is an every day cigarette smoker. Patient voices he takes no medications, denies any medical problems, has no allergies. Patient's significant other is in the room states "he looked like he was breathing really fast." This was during the events prior to coming to the emergency department. TRAVEL OUTSIDE OF THE [place] IN LAST 30 DAYS: No - Related Data Allergies/Adverse Reactions: No Known Allergies Allergy (Verified 08/14/19 16:19) Past Medical History - General Information source: Patient - Social History Smoking Status: Current Every Day Smoker Chew tobacco use (# tins/day): No Frequency of alcohol use: None Family History: Reviewed & Not Pertinent, Hypertension Patient has suicidal ideation: No Patient has homicidal ideation: No Pulmonary Medical History: Reports: Hx Asthma - exercise induced - Immunizations Immunizations up to date: Yes Hx Diphtheria, Pertussis, Tetanus Vaccination: Yes Review of Systems - Review of Systems Constitutional: denies: Fever EENT: See HPI Cardiovascular: See HPI Respiratory: See HPI Gastrointestinal: No symptoms reported Genitourinary: No symptoms reported Male Genitourinary: No symptoms reported Musculoskeletal: No symptoms reported Skin: No symptoms reported Hematologic/Lymphatic: No symptoms reported Neurological/Psychological: See HPI Physical Exam - Vital signs Vitals: Temp Pulse Resp BP Pulse Ox 97.9 F 89 16 153/78 H 100 08/14/19 16:10 08/14/19 16:10 08/14/19 16:10 08/14/19 16:10 08/14/19 16:10 - Notes Notes: GENERAL: Alert, interacts well. No acute distress. HEAD: Normocephalic, atraumatic. EYES: Pupils equal, round, and reactive to light. Extraocular movements intact. ENT: Oral mucosa moist, tongue midline. Nares patent, no nasal septal hematoma, TM's intact, nonerythematous, nonbulging bilaterally. NECK: Full range of motion. Supple. Trachea midline. LUNGS: Clear to auscultation bilaterally, no wheezes, rales, or rhonchi. No respiratory distress. HEART: Regular rate and rhythm. No murmur ABDOMEN: Soft, non-tender. Non-distended. Bowel sounds present in all 4 quadrants. EXTREMITIES: Moves all 4 extremities spontaneously. No edema, normal radial and dorsalis pedis pulses bilaterally. No cyanosis. BACK: no cervical, thoracic, lumbar midline tenderness. No saddle anesthesia, normal distal neurovascular exam. NEUROLOGICAL: Alert and oriented x3. Normal speech. cranial nerves II through XII grossly intact. PSYCH: Normal affect, normal mood. SKIN: Warm, dry, normal turgor. No rashes or lesions noted. Course - Re-evaluation Re-evalutation: Laboratory 08/14/19 08/14/19 08/14/19 16:35 17:40 17:40 WBC 5.6 RBC 4.98 Hgb 14.3 Hct 42.9 MCV 86 MCH 28.7 MCHC 33.4 RDW 14.8 H Plt Count 233 Lymph % (Auto) 31.9 [place] % (Auto) 7.4 Eos % (Auto) 2.0 Baso % (Auto) 0.9 Absolute Neuts (auto) 3.2 Absolute Lymphs (auto) 1.8 Absolute Monos (auto) 0.4 Absolute Eos (auto) 0.1 Absolute Basos (auto) 0.1 Seg Neutrophils % 57.8 VBG pH VBG pCO2 VBG HCO3 VBG Base Excess Sodium 142.0 Potassium 4.3 Chloride 103 Carbon Dioxide 30 Anion Gap 9 BUN 11 Creatinine 1.11 Est GFR ( Amer) > 60 Est GFR (MDRD) Non-Af > 60 Glucose 95 POC Glucose 123 H Calcium 9.3 Total Bilirubin 0.4 Direct Bilirubin 0.2 Neonat Total Bilirubin Not Reportable Neonat Direct Bilirubin Not Reportable Neonat Indirect Bili Not Reportable AST 26 ALT 25 Alkaline Phosphatase 45 Total Protein 8.0 Albumin 4.5 Lipase 66.0 Urine Color Urine Appearance Urine pH Ur Specific [place] Urine Protein Urine Glucose (UA) Urine Ketones Urine Blood Urine Nitrite (Reflex) Urine Bilirubin Urine Urobilinogen Leukocyte Esterase Rfl Urine RBC (Auto) Urine WBC (Reflex) Urine Mucus (Auto) Urine Ascorbic Acid 08/14/19 08/14/19 17:40 17:40 WBC RBC Hgb Hct MCV MCH MCHC RDW Plt Count Lymph % (Auto) [place] % (Auto) Eos % (Auto) Baso % (Auto) Absolute Neuts (auto) Absolute Lymphs (auto) Absolute Monos (auto) Absolute Eos (auto) Absolute Basos (auto) Seg Neutrophils % VBG pH 7.33 VBG pCO2 73.1 H* VBG HCO3 37.4 H VBG Base Excess 8.3 Sodium Potassium Chloride Carbon Dioxide Anion Gap BUN Creatinine Est GFR ( Amer) Est GFR (MDRD) Non-Af Glucose POC Glucose Calcium Total Bilirubin Direct Bilirubin Neonat Total Bilirubin Neonat Direct Bilirubin Neonat Indirect Bili AST ALT Alkaline Phosphatase Total Protein Albumin Lipase Urine Color YELLOW Urine Appearance CLEAR Urine pH 7.0 Ur Specific [place] 1.017 Urine Protein NEGATIVE Urine Glucose (UA) NEGATIVE Urine Ketones NEGATIVE Urine Blood NEGATIVE Urine Nitrite (Reflex) NEGATIVE Urine Bilirubin NEGATIVE Urine Urobilinogen NEGATIVE Leukocyte Esterase Rfl NEGATIVE Urine RBC (Auto) 0 Urine WBC (Reflex) < 1 Urine Mucus (Auto) RARE Urine Ascorbic Acid NEGATIVE Chest X-Ray 08/14/19 19:12 IMPRESSION: Findings are most consistent with viral inflammation. Discussed with patient at bedside likely viral diagnosis. Discussed close fo llow-up with primary care provider and close return precautions. Patient was ambulated in the emergency department showed no signs of respiratory distress. Voices he continues to feel "fine." Patient stable for discharge. Previous visits to the emergency department patient's blood pressure was noted to be 143/95. This does appear to be patient's baseline. - Vital Signs Vital signs: Temp Pulse Resp BP Pulse Ox 97.4 F 62 16 144/85 H 100 08/14/19 20:32 08/14/19 20:32 08/14/19 20:32 08/14/19 20:32 08/14/19 20:32 - Laboratory Result Diagrams: 08/14/19 17:40 08/14/19 17:40 Laboratory results interpreted by me: 08/14/19 08/14/19 08/14/19 16:35 17:40 17:40 RDW 14.8 H VBG pCO2 73.1 H* VBG HCO3 37.4 H POC Glucose 123 H Discharge - Discharge Clinical Impression: Upper respiratory infection Qualifiers: URI type: unspecified viral URI Qualified Code(s): J06.9 - Acute upper respiratory infection, unspecified Condition: Stable Disposition: HOME, SELF-CARE Instructions: Upper Respiratory Illness ([facility]), Viral Syndrome ([facility]) Additional Instructions: As we discussed you have been seen and treated in the emergency department for an upper respiratory infection. These are typically caused by viruses and do not respond to antibiotics. Please make sure you get plenty of rest, drink plenty of fluids and follow-up with your primary care provider in the next 12 to 24 hours. Return to the emergency department for any concerns.
[2019-08-14 23:47] VITALS: BP 131/95
== END 2019-08-14 23:47 | disposition home or self-care (01) ==
LOC: ER 16:07
DX: J06.9 Acute upper respiratory infection, unspecified (principal); R42 Dizziness and giddiness; F17.200 Nicotine dependence, unspecified, uncomplicated
CPT/HCPCS: 36415; 71046; 80053; 81001; 82803; 82962; 83690; 85025